=== PATIENT | female | born 1945 | race Caucasian/White ===

== ENCOUNTER 2018-12-15 15:28 | Outpatient (CLI) | payer MEDICARE, BC ==
--- NOTE | 2018-12-15 20:51 | RAD ---
LEFT SHOULDER THREE VIEWS: 12/15/18 No fracture, dislocation, or AC joint widening was seen. There is no periarticular calcification. The adjacent ribs appeared intact. IMPRESSION: No significant findings. POS: HOME
--- NOTE | 2018-12-15 20:52 | RAD ---
RIGHT SHOULDER THREE VIEWS: 12/15/18 Comparison is made with the left shoulder. The findings are similar in that there is no fracture, dis location or AC joint widening. The visible adjacent ribs appeared intact. IMPRESSION: No significant findings. POS: HOME
== END 2018-12-15 15:29 | disposition home or self-care (01) ==
LOC: BURRAD 15:28
PROVIDERS: ATTEND Family Medicine
DX: M25.511 Pain in right shoulder (principal); M25.512 Pain in left shoulder

== ENCOUNTER 2022-03-17 11:32 | Emergency (ER) | payer OTHER, MEDICARE, BC ==
[2022-03-17] MEDS ORDERED: Lidocaine 1% w/Epinephrine 1:100K 20 ML VIAL ONE (12:08)
[2022-03-17] MEDS ORDERED: Boostrix 0.5 ML (Tdap) VIAL ONE (12:09)
== END 2022-03-17 13:08 | disposition home or self-care (01) ==
LOC: BURERS 11:32
DX: S51.851A Open bite of right forearm, initial encounter (principal); Z23 Encounter for immunization; W54.0XXA Bitten by dog, initial encounter
CPT/HCPCS: 12002; 90471; 90715